=== PATIENT | female | born 1990 | race Asian ===

== ENCOUNTER 2018-02-08 16:50 | Emergency (ER) | payer OTHER ==
[~2018-02-08] VITALS: Ht 149.9 cm; Wt 57.6 kg
[2018-02-08 17:01] VITALS: BP 126/91
[2018-02-08] MEDS ORDERED: ACULAR 0.5100 DROP/5 RIGHT EYE (17:50)
== END 2018-02-08 18:24 | disposition home or self-care (01) ==
LOC: EME 16:50
DX: H10.13 Acute atopic conjunctivitis, bilateral (principal)
CPT/HCPCS: 99281; 99284